=== PATIENT | male | born 1980 ===

== ENCOUNTER 2018-12-01 10:06 | Outpatient (REF) | payer MEDICAID, SELFPAY ==
[2018-12-01 22:14] LABS: C-Reactive Protein 0.24 mg/dL (0.0-0.3)
[2018-12-01 22:58] LABS: ESR 4 mm/hr (0-15)
[2018-12-03 09:37] LABS: Rheumatoid Factor <8 IU/mL (<12.5)
[2018-12-03 11:17] LABS: Lyme Ab w Rflx to Lyme Confirm Negative
[2018-12-03 11:32] LABS: Cyclic Citrullinated Peptide <2.5 U/mL (<5.0)
[2018-12-03 13:56] LABS: ANA Interpretation Negative (NEGAT)
[2018-12-04 21:38] LABS: Anaplasma phagocytophilum Negative (Negative); B. miyamotoi PCR Negative (Negative); Babesia divergens/MO-1 Negative (Negative); Babesia duncani Negative (Negative); Babesia microti Negative (Negative); Ehrlichia chaffeensis Negative (Negative); Ehrlichia ewingii/canis Negative (Negative); Ehrlichia muris eauclairensis Negative (Negative)
== END 2018-12-01 10:26 ==
LOC: NCHCN 10:06
PROVIDERS: PCP Nurse Practitioner Family; Visit Provider Nurse Practitioner Family
DX: G89.4 Chronic pain syndrome (principal); M79.7 Fibromyalgia; M25.551 Pain in right hip; K21.9 Gastro-esophageal reflux disease without esophagitis; K58.9 Irritable bowel syndrome, unspecified
CPT/HCPCS: 85652; 86200; 87798; 86038; 86140; 86431; 86618

== ENCOUNTER 2020-12-30 16:03 | Outpatient (REF) | payer MEDICAID, SELFPAY ==
[2020-12-30 17:13] LABS: C Diff PCR Negative (Negative)
== END 2020-12-30 16:04 | disposition home or self-care (01) ==
LOC: NCHCN 16:03
PROVIDERS: PCP Nurse Practitioner Family; Visit Provider Nurse Practitioner Family
DX: K52.1 Toxic gastroenteritis and colitis (principal); R19.7 Diarrhea, unspecified
CPT/HCPCS: 87493

== ENCOUNTER 2023-05-20 13:42 | Outpatient (REF) | payer MEDICAID, SELFPAY ==
[2023-05-20 21:04] LABS: HCT 45.6 % (40.0-50.0); HGB 15.3 g/dL (13.5-17.5); MCH 31.8 pg (27.0-33.0); MCHC 33.6 % (32.0-36.0); MCV 95 fL (80-95); Platelet Count 201 10^3/uL (130-400); RBC 4.81 10^6/uL (4.36-5.78); RDW 11.9 % (11.8-14.1); WBC 5.69 10^3/uL (4.4-10.8)
[2023-05-20 21:24] LABS: ALT 24 U/L (16-63); AST 19 U/L (15-37); Albumin 4.4 g/dL (3.4-5.0); Alkaline Phosphatase 69 U/L (46-116); BUN 14 mg/dL (7-18); CREATININE 1.1 mg/dL (0.70-1.30); Calcium 9.5 mg/dL (8.5-10.1); Calculated LDL 166 mg/dL (<100); Chloride 102 mmol/L (98-107); Cholesterol 237 mg/dL (<200); Estimated GFR 84.89 (mL/min/1.73m2); Glucose 100 mg/dL (74-106); HDL Cholesterol 41 mg/dL (40-60); Potassium 4.7 mmol/L (3.5-5.1); Sodium 138 mmol/L (136-145); Total Protein 8.1 g/dL (6.4-8.2); Triglyceride 150 mg/dL (<150)
[2023-05-20 21:29] LABS: Hemoglobin A1C 4.9 % (<5.7)
[2023-05-20 21:37] LABS: Bilirubin, Total 0.4 mg/dL (0.2-1.0)
== END 2023-05-20 13:43 | disposition home or self-care (01) ==
LOC: NCHCN 13:42
PROVIDERS: PCP Nurse Practitioner Family; Visit Provider Nurse Practitioner Family
DX: R03.0 Elevated blood-pressure reading, without diagnosis of hypertension (principal); Z13.220 Encounter for screening for lipoid disorders; Z13.1 Encounter for screening for diabetes mellitus; R79.89 Other specified abnormal findings of blood chemistry
CPT/HCPCS: 80053; 80061; 85027; 83036